=== PATIENT | female | born 1965 | race Caucasian/White ===

== ENCOUNTER 2020-01-08 17:27 | Emergency (ER) | payer OTHER ==
[~2020-01-08] VITALS: Ht 154.9 cm; Wt 73.0 kg
[2020-01-08 18:04] VITALS: Ht 154.9 cm; Wt 73.0 kg
[2020-01-08 20:52] VITALS: BP 139/90
== END 2020-01-08 20:52 | disposition home or self-care (01) ==
LOC: ED 17:27
DX: S13.4XXA Sprain of ligaments of cervical spine, initial encounter (principal); V49.49XA Driver injured in collision with other motor vehicles in traffic accident, initial encounter; Y93.I9 Activity, other involving external motion; Y92.488 Other paved roadways as the place of occurrence of the external cause; Y99.8 Other external cause status